=== PATIENT | male | born 1950 | race Caucasian/White ===

== ENCOUNTER → 2023-01-10 12:57 | Outpatient (BNVA) | payer OTHER, SELFPAY | PROVIDERS: Family Provider Emergency Medicine Emergency Medical Services; PCP Emergency Medicine Emergency Medical Services; Visit Provider Podiatrist Foot & Ankle Surgery | DX: E11.42 Type 2 diabetes mellitus with diabetic polyneuropathy (principal); M21.612 Bunion of left foot; M21.611 Bunion of right foot; L60.3 Nail dystrophy | CPT/HCPCS: 73630; 99204 ==

== ENCOUNTER → 2023-04-11 12:47 | Outpatient (BNVA) | payer OTHER, SELFPAY | PROVIDERS: Family Provider Emergency Medicine Emergency Medical Services; PCP Emergency Medicine Emergency Medical Services; Visit Provider Podiatrist Foot & Ankle Surgery | DX: L60.3 Nail dystrophy (principal); E11.42 Type 2 diabetes mellitus with diabetic polyneuropathy; M21.611 Bunion of right foot; M21.612 Bunion of left foot | CPT/HCPCS: 99214 ==

== ENCOUNTER → 2023-07-18 12:59 | Outpatient (BNVA) | payer OTHER, SELFPAY | PROVIDERS: Family Provider Emergency Medicine Emergency Medical Services; PCP Emergency Medicine Emergency Medical Services; Visit Provider Podiatrist Foot & Ankle Surgery | DX: E11.8 Type 2 diabetes mellitus with unspecified complications (principal); L60.3 Nail dystrophy; E11.42 Type 2 diabetes mellitus with diabetic polyneuropathy; M21.611 Bunion of right foot; M21.612 Bunion of left foot | CPT/HCPCS: 99213 ==

== ENCOUNTER 2023-10-02 10:55 | Emergency (ER) | payer OTHER, SELFPAY ==
[2023-10-02 10:58] VITALS: BP 118/58; PULSE 50; RESP 16; TEMP 36.5; O2SAT 97; BMI 39.9
--- NOTE | 2023-10-02 11:04 | XR_ITS ---
WS: [id number] Exam: XR chest 1V portable [id number] Date/Time of Exam: 10/02/2023 11:09 AM Reason For Exam: dyspnea/cough No previous exams. The lungs are clear. Normal cardiomediastinal silhouette. No pneumothorax or pleural effusion. Region al bony elements appear normal. High riding LEFT humeral head probably indicates rotator cuff degener ation. IMPRESSION: 1. No acute cardiopulmonary finding.
--- NOTE | 2023-10-02 11:06 | ECG_ITS ---
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 Measurements Intervals [place] Rate: 37 P: 0 NH: 0 QRS: 34 QRSD: 109 T: 35 QT: 466 QTc: 368 Interpretive Statements ATRIAL FIBRILLATION WITH SLOW VENTRICULAR RESPONSE WITH ABERRANT CONDUCTION OR VENTRICULAR PREMATURE COMPLEXES LOW QRS VOLTAGE IN PRECORDIAL LEADS [QRS DEFLECTION < 1.0 mV IN CHEST LEADS] No previous ECG available for comparison Electronically Signed On 10-02-2023 18:33:47 REMOTE CODERS by Meri Basurto M.D. [id number]
--- NOTE | 2023-10-02 11:12 | ED_ITS ---
HPI - Arrhythmia/Palpitations General: Chief Complaint: Arrhythmia/Palpitations Stated Complaint: SOB, Edema Time Seen by Provider: 10/02/23 11:03 Source: patient Mode of arrival: ambulatory History of Present Illness: 73-year-old male presents emergency room with complaint of slow heart rate & 20 pound weight gain in the last week. He denies any chest pain or discomfort. He states they have been changing some of his medicines recently but he is not sure what he thinks it was all related to his diabetes. He has a history of a solitary kidney. He is not on any diuretics. He states over the last approximately week he has gained 20 pounds and no significant swelling in his abdomen and lower extremities. MD complaint: atrial fibrillation Onset (ago): day(s) Duration: constant Severity: moderate Arrhythmia history: atrial fibrillation Associated symptoms: Deny anxiety, cough, diaphoresis, muscle cramps, nausea, paresthesias, pre-syncope, sense of impending doom, short of breath, syncope or vomiting Review of Systems Const: Denies: fever(s), chills or diaphoresis Card: Reports: palpitations, edema and swelling of feet/ankles; Denies: chest pain, syncope or pre-syncope Resp: Denies: dyspnea GI: Denies: abdominal pain, nausea or vomiting : Denies: dysuria, urinary frequency or urinary urgency Musc: Reports: extremity swelling; Denies: neck pain, back pain, extremity pain or muscle cramps Skin/Breast: Denies: rash Psych: Denies: anxiety Physical Exam Const: GENERAL APPEARANCE: cooperative and comfortable ORIENTATION/CONSCIOUSNESS: Yes awake, Yes oriented to person, Yes oriented to place and Yes oriented to time HENMT: COMMON NORMALS: normocephalic, atraumatic and hearing grossly normal bilaterally HEAD & SCALP: normocephalic and atraumatic Resp: COMMON NORMALS: normal respiratory effort, No retractions, No use of accessory muscles and clear to auscultation bilaterally AUSCULTATION: clear to auscultation bilaterally Cardio: COMMON NORMALS: No murmurs present (Cardio) RATE: bradycardic RHYTHM: abnormal rhythm irregularly irregular GI: COMMON NORMALS: Soft to palpation and No hepatosplenomegaly present AUSCULTATION: Yes normoactive bowel sounds PALPATION: Yes Soft to palpation, No Tenderness to palpation present (GI), No Guarding due to palpation present (GI) and Yes No hepatosplenomegaly present Extremity: COMMON NORMALS: normal to inspection, capillary refill normal and no calf tenderness GENERAL: Yes edema (2+ lower extremities bilaterally) Neuro: SENSORIUM/ORIENTATION: Yes oriented to person, Yes oriented to place and Yes oriented to time Skin: COMMON NORMALS: no rashes or lesions noted GENERAL SKIN EXAM: no rashes or lesions noted Course Vital Signs: Vital signs: Vital Signs Temperature 97.7 F 10/02/23 10:58 Pulse Rate 60 10/02/23 13:13 Respiratory Rate 16 10/02/23 13:13 Blood Pressure 126/70 10/02/23 13:13 Pulse Oximetry 96 10/02/23 13:13 Oxygen Delivery Me thod Room Air 10/02/23 11:42 MDM - Arrhythmia/Palpitations Medical Decision Making Pt tolerating well. Given lasix in ER with mdoerate diuresis. decrease metoprolol add lasix 20mg daily. Follow up with pts PCP in 3 days. Medical Records I reviewed the patient's medical records. Lab Data I reviewed the patient's lab results. 10/02/23 11:14 10/02/23 11:14 Laboratory Results WBC 4.44 10^3/uL (3.29-11.43) 10/02/23 11:14 RBC 4.01 10^6/uL (3.85-5.65) 10/02/23 11:14 Hgb 13.00 g/dL (11.27-16.99) 10/02/23 11:14 Hct 39.8 % (37-53) 10/02/23 11:14 MCV 99.3 fl (82-101) 10/02/23 11:14 MCH 32.4 pg (27-33) 10/02/23 11:14 MCHC 32.7 g/dL (30-55) 10/02/23 11:14 RDW 13.6 % (12.1-15.1) 10/02/23 11:14 Plt Count 156 10^3/cmm (157-399) L 10/02/23 11:14 MPV 10.3 fL (7.4-10.4) 10/02/23 11:14 Neut % (Auto) 64.5 % 10/02/23 11:14 Lymph % (Auto) 21.2 % 10/02/23 11:14 [place] % (Auto) 7.7 % 10/02/23 11:14 Eos % (Auto) 4.7 % 10/02/23 11:14 Baso % (Auto) 1.4 % 10/02/23 11:14 Neut # (Auto) 2.87 10^3/uL (1.8-7.7) 10/02/23 11:14 Lymph # (Auto) 0.9 10^3/uL (0.8-4.8) 10/02/23 11:14 [place] # (Auto) 0.3 10^3/uL (0.2-0.9) 10/02/23 11:14 Eos # (Auto) 0.2 10^3/uL (0.0-0.8) 10/02/23 11:14 Baso # (Auto) 0.1 10^3/uL (0.0-0.1) 10/02/23 11:14 Nucleated RBC % (auto) 0 % 10/02/23 11:14 Nucleated RBCs # 0.0 /100WBC 10/02/23 11:14 Sodium 139 mmol/L (136-145) 10/02/23 11:14 Potassium 4.6 mmol/L (3.5-5.1) 10/02/23 11:14 Chloride 107 mmol/L (98-107) 10/02/23 11:14 Carbon Dioxide 24 mmol/L (22-29) 10/02/23 11:14 Anion Gap 12.6 (5-19) 10/02/23 11:14 BUN 31 mg/dL (8-23) H 10/02/23 11:14 Creatinine 1.5 mg/dL (0.7-1.2) H 10/02/23 11:14 GFR Calculation Not Reportable 10/02/23 11:14 Glucose 91 mg/dL (65-115) 10/02/23 11:14 Calculated Osmolality 294 mOsm/kg (285-295) 10/02/23 11:14 Calcium 9.7 mg/dL (8.5-10.5) 10/02/23 11:14 Total Bilirubin 0.4 mg/dL (0.15-1.2) 10/02/23 11:14 AST 17 U/L (0-40) 10/02/23 11:14 ALT 10 U/L (0-41) 10/02/23 11:14 Alkaline Phosphatase 76 U/L (40-130) 10/02/23 11:14 Troponin T Baseline 21 ng/L (0-15) H 10/02/23 11:14 Troponin T 120 Minute 19.68 ng/L (0-15) H 10/02/23 12:58 Delta Troponin T -1.32 ABS# (0-10) L 10/02/23 12:58 NT-Pro-B Natriuret Pep 2414 pg/mL (0-125) H 10/02/23 11:14 Total Protein 6.8 g/dL (6.6-8.7) 10/02/23 11:14 Albumin 4.1 g/dL (3.5-5.2) 10/02/23 11:14 Globulin 2.7 g/dL (1.3-4.6) 10/02/23 11:14 Urine Color Yellow (Yellow) 10/02/23 11:44 Urine Appearance Clear (CLEAR) 10/02/23 11:44 Urine pH 5 (5-7) 10/02/23 11:44 Ur Specific [place] 1.015 (1.005-1.030) 10/02/23 11:44 Urine Protein Neg (Negative) 10/02/23 11:44 Urine Glucose (UA) Norm (Normal) 10/02/23 11:44 Urine Ketones Negative (Negative) 10/02/23 11:44 Urine Blood Neg (Negative) 10/02/23 11:44 Urine Nitrate Negative (Negative) 10/02/23 11:44 Urine Bilirubin Neg (Negative) 10/02/23 11:44 Urine Urobilinogen Norm mg/dL (Negative) 10/02/23 11:44 Ur Leukocyte Esterase Negative (Negative) 10/02/23 11:44 All radiology interpretation(s) finalized by discharge Discharge Plan Discharge Patient Disposition: Home Clinical Impression: Atrial fibrillation, CKD (chronic kidney disease), CHF (congestive heart failure) Condition: Stable Prescriptions: New metoprolol tartrate 50 mg tablet 25 mg PO BID Qty: 30 0RF Lasix 40 mg tablet 40 mg PO DAILY Qty: 5 0RF Discontinued metoprolol tartrate 100 mg Tablet 150 mg PO BID No Action Multi-Vitamins Tablet 1 tab PO QAM glipizide 10 mg Tablet 10 mg PO TID gemfibrozil 600 mg Tablet 600 mg PO BID folic acid 1 mg Tablet See Rx Instructions .ROUTE .COMPLEX Rx Instructions: 1 mg orally twice weekly pioglitazone 30 mg Tablet 15 mg PO DAILY Vitamin D3 25 mcg (1,000 unit) Tablet 25 mcg PO DAILY Voltaren 1 % Gel 1 - 2 g TOPICAL QID Rx Instructions: apply to single elbow, wrist or hand; for hand includes palm/fingers/back of hand alogliptin 12.5 mg Tablet 12.5 mg PO QAM Discharge Orders: Discharge ED (Routine); Ordered 10/02/23 Ordered By: Remy Au Referrals: Ramón Sanchez, [Primary Care Provider] - Discharge Diet: Cardiac and Low Salt Discharge Activity: Increase activity as tolerated Patient Instructions: Opioid Safety, Pain Management Activity Restrictions/Additional Instructions: Thank you for choosing [facility] for your healthcare needs today. Please realize this is an emergency room and that we are providing you with a medical screening exam and this may not be complete and all inclusive of all the testing and or work up that you may need to determine your ailment or severity of your illness. It is very important that you follow up as instructed or that you return to the Emergency Department should you have concerns or if your condition changes or worsens in any way. Decrease your metoprolol to 125 mg twice daily you were given new prescriptions for this. Recommend starting Lasix 40 daily. Because you only have a solitary kidney your kidney function needs to be rechecked in 3 to 4 days. Contact the ID clinic for short-term follow-up with Dr. Sanchez. Coding Level of Care Code ED Mold Maker Helper for Nadeem Laboy
[2023-10-02 11:21] LABS: Basophils # 0.1 10^3/uL (0.0-0.1); Basophils % 1.4 %; Eosinophils # 0.2 10^3/uL (0.0-0.8); Eosinophils % 4.7 %; Hematocrit 39.8 % (37-53); Lymphocytes # 0.9 10^3/uL (0.8-4.8); Lymphocytes % 21.2 %; Mean Corpuscular HGB Conc 32.7 g/dL (30-55); Mean Corpuscular Hemoglobin 32.4 pg (27-33); Mean Corpuscular Volume 99.3 fl (82-101); Mean Platelet Volume 10.3 fL (7.4-10.4); Monocytes # 0.3 10^3/uL (0.2-0.9); Monocytes % 7.7 %; Neutrophils # 2.87 10^3/uL (1.8-7.7); Neutrophils % 64.5 %; Nucleated Red Blood Cells % 0 %; Platelet Count 156 10^3/cmm (157-399); Red Blood Count 4.01 10^6/uL (3.85-5.65); Red Cell Distribution Width 13.6 % (12.1-15.1); White Blood Count 4.44 10^3/uL (3.29-11.43)
[2023-10-02 11:39] LABS: Troponin(5th) Baseline 21 ng/L (0-15)
[2023-10-02 11:42] VITALS: BP 118/56; PULSE 47; RESP 18; O2SAT 93
[2023-10-02 11:47] LABS: Alanine Aminotransferase 10 U/L (0-41); Albumin Level 4.1 g/dL (3.5-5.2); Alkaline Phosphatase 76 U/L (40-130); Anion Gap 12.6 (5-19); Aspartate Amino Transferase 17 U/L (0-40); Blood Urea Nitrogen 31 mg/dL (8-23); Calcium 9.7 mg/dL (8.5-10.5); Carbon Dioxide 24 mmol/L (22-29); Chloride 107 mmol/L (98-107); Globulin 2.7 g/dL (1.3-4.6); Glucose 91 mg/dL (65-115); NT Pro B Type Natriuretic Pept 2414 pg/mL (0-125); Osmolality Calculated 294 mOsm/kg (285-295); Potassium 4.6 mmol/L (3.5-5.1); Sodium 139 mmol/L (136-145); Total Bilirubin 0.4 mg/dL (0.15-1.2); Total Protein 6.8 g/dL (6.6-8.7)
[2023-10-02] MEDS: FUROsemide 10 mg/mL SDV 2mL 20 MG IVP (11:50)
[2023-10-02 11:54] LABS: Add Urine Microscopic? NO; Charge for UA Resulting for Rev
--- NOTE | 2023-10-02 11:58 | PC.PHAR ---
JACOB RESENDEZ FOR MED LIST 11:59 AM 10/02/23
[2023-10-02 12:03] LABS: Bilirubin Urine Neg (Negative); Blood Urine Neg (Negative); Glucose Urine UA Norm (Normal); Ketones Urine Negative (Negative); Leukocyte Esterase Urine Negative (Negative); Nitrate Urine Negative (Negative); Protein Urine Neg (Negative); Specific Gravity, Urine 1.015 (1.005-1.030); Urine Appearance Clear (CLEAR); Urine Color Yellow (Yellow); Urobilinogen Urine Norm (Negative); pH Urine 5 (5-7)
--- NOTE | 2023-10-02 12:03 | PC.PHAR ---
MED LIST NOT CONFIRMED YET...[facility] MED L[facility] PENDING
[2023-10-02 12:07] VITALS: BP 113/75; PULSE 75; RESP 14; O2SAT 98
--- NOTE | 2023-10-02 13:12 | ECG_ITS ---
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 Measurements Intervals [place] Rate: 42 P: 0 CO: 0 QRS: 37 QRSD: 106 T: 38 QT: 470 QTc: 394 Interpretive Statements ATRIAL FIBRILLATION WITH SLOW VENTRICULAR RESPONSE LOW QRS VOLTAGE IN PRECORDIAL LEADS [QRS DEFLECTION < 1.0 mV IN CHEST LEADS] ABNORMAL RHYTHM ECG Compared to ECG 10/02/2023 11:06:15 Ventricular premature complex(es) no longer present Aberrant conduction of supraventricular beat(s) no longer present Electronically Signed On 10-03-2023 1:52:19 MVA REACTOR OPERATOR HEAD by Meri Basurto M.D. [email or web address].[employer]/store/[id number]
[2023-10-02 13:13] VITALS: BP 126/70; PULSE 60; RESP 16; O2SAT 96
[2023-10-02 13:45] LABS: Troponin 5 2HR 19.68 ng/L (0-15)
[2023-10-02 13:46] LABS: Troponin 5 2HR Delta -1.32 ABS# (0-10)
== END 2023-10-02 14:49 | disposition home or self-care (01) ==
PROVIDERS: Emergency Provider Family Medicine; Family Provider Emergency Medicine Emergency Medical Services; PCP Emergency Medicine Emergency Medical Services
DX: I48.91 Unspecified atrial fibrillation (principal); E11.22 Type 2 diabetes mellitus with diabetic chronic kidney disease; N18.9 Chronic kidney disease, unspecified; I50.9 Heart failure, unspecified; Z79.84 Long term (current) use of oral hypoglycemic drugs
CPT/HCPCS: 36415; 71045; 80053; 81003; 83880; 84484; 85025; 93005; 96374; 99285; J1940

== ENCOUNTER → 2023-12-13 14:20 | Outpatient (BNVA) | payer OTHER, SELFPAY | PROVIDERS: Family Provider Emergency Medicine Emergency Medical Services; PCP Emergency Medicine Emergency Medical Services; Visit Provider Internal Medicine Cardiovascular Disease | DX: I11.0 Hypertensive heart disease with heart failure (principal); I50.22 Chronic systolic (congestive) heart failure; I48.20 Chronic atrial fibrillation, unspecified; Z79.01 Long term (current) use of anticoagulants; E78.5 Hyperlipidemia, unspecified; E11.9 Type 2 diabetes mellitus without complications; R00.1 Bradycardia, unspecified | CPT/HCPCS: 36415; 80048; 83880; 85025; 85610; 99205 ==

== ENCOUNTER 2023-12-22 09:23 | Outpatient (CLI) | payer OTHER, SELFPAY ==
--- NOTE | 2023-12-22 | ECG_ITS ---
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 Interpretive Statements NAME OF STUDY: LEXISCAN SESTAMIBI STRESS TEST INDICATION: [SOB/CHF, ] Procedure: At the baseline, the blood pressure was 127/81 mmHg with a heart rate of 80 bpm. The electrocardiogram showed atrial fibrillation, normal axis with normal ST and T's. The Lexiscan was infused over a period of 20 seconds. A total of 0.4 mg of Lexiscan was infused. The stress phase was continued for a total of 5 minutes. Heart rate was at the end of stress phase was 78 bpm and a blood pressure of 153/84 mmHg. The EKG at the peak infusion revealed atrial fibrillation with no significant ST-T wave changes. Sestamibi was injected 20 seconds after the Lexiscan infusion. Blood pressure at the end of recovery phase was 131/88 mmHg with a heart rate of 86 bpm. Conclusion: 1. Normal EKG response to Lexiscan infusion 2. No Lexiscan induced chest pain or cardiac arrhythmia. 3. Normal blood pressure and heart rate response. 4. Sestamibi/sestamibi perfusion scan pending; see separate report. Electronically Signed On 12-24-2023 12:05:13 CHOIR LEADER by Daniele Orr M.D. [email or web address].[email or web address]/[id number]
[2023-12-22 09:35] VITALS: BMI 37.1
--- NOTE | 2023-12-22 10:05 | NMCV_ITS ---
NM jeovanny perf SPECT r/s* [id number] Sonido Zhong Age: 73 Gender: M : 1950 Exam Date: 12/22/2023 10:32 Ordering Phys: Yessi Suarez MD ([email or web address]) Technologist: GEREMIAS Erickson Exam Location: [facility] Indications: CORONARY ANGIOPLASTY STATUS STRESS TEST Please see separate stress test report in [facility] for full findings IMAGE PROTOCOL Rest/Stress 1 Lexiscan Day Radiopharmaceutical Dose (mCi) Administration Site Administered by Rest: Tc-99m 11.0 IV GEREMIAS Soto Sestamibi Stress:Tc-99m 33.0 IV GEREMIAS Soto Sestamibi Rest: 22-Dec-2023 60 Discovery 630 Stress: 22-Dec-2023 30 Discovery 630 0.4mg Lexiscan. Images obtained in supine and prone position. SPECT RESULTS Technical Quality: Excellent Raw Data Analysis: Normal Image Corrections: No attenuation or motion correction applied Summed Stress Score: 2 Summed Rest Score: 3 Summed Difference Score: 0 PERFUSION FINDINGS SPECT images demonstrate homogeneous tracer distribution throughout the myocardium. FUNCTIONAL RESULTS (calculated via Gated SPECT) Stress Image LV EF (%): 75 Stress EDV (mL):112 TID: 1.21 Stress ESV (mL):28 FUNCTIONAL FINDINGS: There is normal left ventricular systolic function. TID ratio is elevated. IMPRESSIONS 1. Normal myocardial perfusion imaging with no evidence of ischemia 2. LV systolic function is normal 3. TID ratio is elevated. This may represent subendocardial ischemia. Daniele Orr MD (Electronically Signed) Final Date: 23 December 2023 14:12 S
[2023-12-22] MEDS: regadenoson 0.4 Mg/5 ml Syringe IVP (11:07)
[2023-12-22 11:14] VITALS: BP 131/88; PULSE 86
--- NOTE | 2023-12-22 12:44 | USCV_ITS ---
CrystalSonido jimenez Age: 73 Gender: M : 1950 Exam Date: 12/22/2023 13:46 Ordering Phys: Yessi Suarez MD ([email or web address]) Technologist: TIM Exam Location: [facility] Indication: A FIB BP: 108 / 62 HR: 71 Rhythm: Atrial fibrillation Technical Quality: Adequate MEASUREMENTS (Male / Female) Normal Values 2D ECHO LVOT Diameter 2.0 cm LV Ejection Fraction MOD 2C 62.4 % LV Ejection Fraction 2C AL 61.6 % LA Diameter 4.3 cm LA Width 3.8 cm LA Height 5.7 cm RA Width 3.2 cm RA Height 5.5 cm Aorta at Sinotubular Diameter 2.6 cm IVC Diameter 1.9 cm M-MODE Aortic Annulus Diameter 2.7 cm LA Ao Ratio MM 1.6 MV E Point Septal Separation 0.7 cm DOPPLER AV Peak Velocity 156.0 cm/s LVOT Peak Velocity 112.0 cm/s AV Area Cont Eq vti 2.5 cm squared AV Area Cont Eq pk 2.3 cm squared MV Peak Velocity 103.0 cm/s MV Area PHT 3.3 cm squared MV E' Velocity 53.0 cm/s Mitral E to MV E' Ratio 7.5 Mitral E to LV E' Lateral Ratio 6.6 Mitral E to LV E' Septal Ratio 8.7 TR Peak Velocity 257.5 cm/s TR Peak Gradient 26.5 mmHg TR Mean Velocity 212.8 cm/s TR Mean Gradient 18.9 mmHg TR Velocity Time Integral 64.7 cm TV Peak E Velocity 84.0 cm/s Right Atrial Pressure 3.0 mmHg Pulmonary Artery Systolic Pressu 29.5 mmHg PV Peak Velocity 113.0 cm/s RV Acceleration Time 0.2 s RV Ejection Time 0.3 s RV AcT/ET 0.6 FINDINGS Left Ventricle Mildly limited quality echocardiogram because of poor ultrasonic windows. Left ventricle is normal size. LV systolic function is normal with EF of 60 to 65%. No regional wall motion abnormalities are seen. Right Ventricle Grossly normal. Right Atrium Normal in size Left Atrium Dilated. Mitral Valve Structurally normal mitral valve. Trace mitral regurgitation. Aortic Valve Aortic valve is thickened. No significant stenosis seen. Tricuspid Valve Mild tricuspid regurgitation. Pulmonary artery systolic pressure is normal. Pulmonic Valve Not well-visualized. Pericardium Normal Aorta Normal in size IVC Not well visualized CONCLUSIONS Technically limited quality echocardiogram because of poor ultrasonic windows. LV systolic function is normal with EF of 60 to 65%. Left atrial dilation. Trace mitral regurgitation Mild tricuspid regurgitation No comparison studies are available Daniele Orr MD (Electronically Signed) Final Date: 31 December 2023 20:37 S
== END 2023-12-22 09:24 | disposition home or self-care (01) ==
PROVIDERS: PCP Emergency Medicine Emergency Medical Services; Visit Provider Internal Medicine Cardiovascular Disease
DX: I50.9 Heart failure, unspecified (principal); I48.91 Unspecified atrial fibrillation; Z98.61 Coronary angioplasty status; I07.1 Rheumatic tricuspid insufficiency
CPT/HCPCS: 36415; 78452; 93017; 93306; 96374; A9500; J2785

== ENCOUNTER → 2024-02-12 15:48 | Outpatient (BNVA) | payer OTHER, SELFPAY | PROVIDERS: PCP Emergency Medicine Emergency Medical Services; Visit Provider Internal Medicine Cardiovascular Disease | DX: I11.0 Hypertensive heart disease with heart failure (principal); I50.32 Chronic diastolic (congestive) heart failure; E78.5 Hyperlipidemia, unspecified; I48.20 Chronic atrial fibrillation, unspecified; R00.1 Bradycardia, unspecified | CPT/HCPCS: 99214 ==

== ENCOUNTER → 2024-07-16 10:33 | Outpatient (BNVA) | payer OTHER, SELFPAY | PROVIDERS: PCP Emergency Medicine Emergency Medical Services; Visit Provider Podiatrist Foot & Ankle Surgery | DX: L60.3 Nail dystrophy; E11.42 Type 2 diabetes mellitus with diabetic polyneuropathy; L60.0 Ingrowing nail; M21.611 Bunion of right foot; M21.612 Bunion of left foot | CPT/HCPCS: 11721 ==

== ENCOUNTER → 2024-08-15 11:20 | Outpatient (BNVA) | payer OTHER, SELFPAY | PROVIDERS: PCP Emergency Medicine Emergency Medical Services; Visit Provider Nurse Practitioner Family | DX: I50.22 Chronic systolic (congestive) heart failure (principal); I48.20 Chronic atrial fibrillation, unspecified; I48.91 Unspecified atrial fibrillation; I21.09 ST elevation (STEMI) myocardial infarction involving other coronary artery of anterior wall | CPT/HCPCS: 93005; 99214 ==

== ENCOUNTER → 2025-07-01 10:59 | Outpatient (BNVA) | payer OTHER, SELFPAY | PROVIDERS: PCP Emergency Medicine Emergency Medical Services; Visit Provider Podiatrist Foot & Ankle Surgery | DX: E11.42 Type 2 diabetes mellitus with diabetic polyneuropathy (principal); L60.3 Nail dystrophy; E11.8 Type 2 diabetes mellitus with unspecified complications; M21.611 Bunion of right foot; M21.612 Bunion of left foot | CPT/HCPCS: 11721; 99213 ==